=== PATIENT | male | born 1955 | race Caucasian/White ===

== ENCOUNTER 2021-05-10 14:47 | Outpatient (CLI) | payer MEDICARE, SELFPAY ==
--- NOTE | 2021-05-10 14:50 | XRR_ITS ---
PROCEDURE INFORMATION: Exam: XR Chest Exam date and time: 05/10/2021 2:50 PM Age: 66 years old Clinical indication: Shortness of breath; Prior surgery; Surgery type: Open heart; Additional info: Other chest pain/shortness of breath TECHNIQUE: Imaging protocol: XR of the chest. Views: 2 views. COMPARISON: CR Cervical Spine AP/Lat* [id number] 06/27/2017 12:31 PM FINDINGS: Lungs: Mildly hyperinflated lungs. No focal consolidation. Pleural spaces: Unremarkable. No pleural effusion. No pneumothorax. Heart/Mediastinum: Post CABG changes with sternotomy wires/plates and borderline cardiomegaly. Bones/joints: See Heart/Mediastinum finding. XR/XR chest 2V* [id number] IMPRESSION: No acute findings.
== END 2021-05-10 14:48 | disposition home or self-care (01) ==
LOC: RAD 14:48
PROVIDERS: PCP Family Medicine; Visit Provider Family Medicine
DX: R07.89 Other chest pain (principal); R06.02 Shortness of breath
CPT/HCPCS: 71046

== ENCOUNTER 2021-09-19 16:47 | Outpatient (CLI) | payer MEDICARE, SELFPAY ==
--- NOTE | 2021-09-19 | XR_ITS ---
WS: [id number] Bilateral hips, AP pelvis, 09/19/2021 Clinical Data: BILATERAL HIP PAIN. CHRONIC LOW BACK PAIN. Comparison: None. Findings: The AP pelvis shows that the SI joints and pubic symphysis are normal. There is a posterior fusion fr om L4 through S1 with bilateral pedicle screws and connecting rods. The right hip shows no fracture. There is a small acetabular lip. The right hip shows no erosion, scl erosis, narrowing or flattening. The left hip shows no fracture. There is a small acetabular lip. He the left hip shows no erosion, sc lerosis, narrowing or flattening. XR/XR hip BI m 5V wo/w pel* [id number] Impression: 1. Posterior fusion from L4 through S1. 2. Negative pelvis. 3. Minimal osteoarthritic lipping of both hips.
--- NOTE | 2021-09-19 | XR_ITS ---
WS: [id number] Lumbar spine, 3 views, 09/19/2021 Clinical Data: CHRONIC LOW BACK PAIN Comparison: Lumbar spine, 06/27/2017. Findings: There is a posterior fusion of L4-S1 with bilateral pedicle screws and connecting rods. Artificial di sc material is in L4-L5 and L5-S1. Laminectomies at L4 and L5 are seen. There is anterior osteoarthri tic spurring at L3-L4. No compression fractures or subluxation is seen. No disc space narrowing is seen. The transverse proc esses and SI joints are normal. XR/XR lumbar spine 2-3V* [id number] Impression: 1. Negative for lumbar spine fracture or subluxation. 2. Stable posterior fusion L4-S1.
== END 2021-09-19 16:48 | disposition home or self-care (01) ==
LOC: RAD 16:52
PROVIDERS: PCP Family Medicine; Visit Provider Family Medicine
DX: M54.41 Lumbago with sciatica, right side (principal); M54.42 Lumbago with sciatica, left side; G89.29 Other chronic pain; M43.27 Fusion of spine, lumbosacral region; M25.551 Pain in right hip; M25.552 Pain in left hip
CPT/HCPCS: 72100; 73502; 73523

== ENCOUNTER 2021-11-13 16:40 | Emergency (ER) | payer MEDICARE, SELFPAY ==
[2021-11-13 17:08] VITALS: BP 114/61; PULSE 72; RESP 16; O2SAT 95; BMI 30.5
--- NOTE | 2021-11-13 17:09 | W.ED.LOWEXIN ---
HPI - Extremity Injury (Lower) General: Chief Complaint: Chest Pain Stated Complaint: right hip pain Time Seen by Provider: 11/13/21 17:08 History of Present Illness: 66-year-old male patient comes in today with right hip pain. Patient reports that he has had pain on and off for the last 3 months. Patient is awaiting an MRI for further evaluation of the pain. Patient sees Dr. Ordonez. Patient came in today to see if there was anything that could be done to help with his pain and discomfort. Patient had to have a bypass and does have some discomfort to his chest wall from a fall about 3 weeks ago which she mentioned to nursing staff. Patient states that he is not really concerned about the chest wall pain as its been going on for 2 years after his CABG. It just seem to be aggravated since he fell. Pain is reproducible to the chest wall with palpation. Patient is able to stand and walk but reports increased pain to his right hip area with walking. Patient also reports increased falls due to his right hip. Review of Systems General: Reports: 10 or more systems reviewed and unremarkable except in HPI and below Musc: Reports: joint pain (Right hip) PFS ED PFSH: Social History (Updated 02/09/21 @ 16:02 by Joon Mcdonald LPN) Smoking and tobacco status: current every day smoker cigarettes Quit status (tobacco): considering quitting History of recent travel: No Physical Exam Const: COMMON NORMALS: alert Chest: CHEST: Yes tenderness rib and costochondral junction (left lower sternal area) Resp: COMMON NORMALS: normal respiratory effort and clear to auscultation bilaterally AUSCULTATION: clear to auscultation bilaterally Cardio: COMMON NORMALS: regular rate and regular rhythm RATE: regular rate RHYTHM: regular rhythm GI: COMMON NORMALS: Soft to palpation and non-tender PALPATION: Yes Soft to palpation Extremity: RIGHT LOWER EXTREMITY: Yes hip joint (No tenderness to palpation. Mild decrease in range of motion.) Right hip: Yes inspection, Yes palpation, Yes ROM and Yes neurovascular exam Neuro: SENSORIUM/ORIENTATION: Yes alert Psych: COMMON NORMALS: cooperative Skin: COMMON NORMALS: no rashes or lesions noted GENERAL SKIN EXAM: no rashes or lesions noted Course Vital Signs: Vital signs: Vital Signs Pulse Rate 72 11/13/21 17:08 Respiratory Rate 16 11/13/21 17:08 Blood Pressure 114/61 11/13/21 17:08 Pulse Oximetry 95 11/13/21 17:08 MDM - Extremity Injury (Lower) Medical Decision Making 66-year-old male patient comes in today for complaints of right hip pain. On exam patient has some reproducible chest wall pain on palpation to left lower sternal costal area. Lungs have good air movement throughout with some coarse sounds in the bases. Heart rates regular with normal tones. Abdomen soft nontender. Palpation of the lower lumbar elicits some discomfort. Paraspinous muscle palpation does not elicit pain. No pain is noted on palpation of the hip joint or inguinal area. Review of the record noted some x-rays done at the end of August that noted a intact fusion in the lower lumbar without any signs of fracture, or any hip fractures but some degenerative joint disease in the hips bilaterally. Differential diagnosis includes osteoarthritis of the hip, intervertebral disc disease, facet arthropathy, contusion. The patient's pain is probably secondary to osteoarthritis of the hip. I encourage patient to stay as mobile as he can. Patient was given 10 mg of dexamethasone to see if that would help with his pain and inflammation. Patient will continue with routine care. Case management was quested to put in referral to orthopedics for further evaluation and treatment. Patient reported understanding and agreed to plan. Discharge Plan Discharge Patient Disposition: Home Clinical Impression: Chronic right hip pain, Osteoarthritis, hip, bilateral Condition: Stable Prescriptions: No Action mirtazapine [Remeron] 30 mg tablet 30 mg PO DAILY 0RF hydrocodone-acetaminophen 7.5-325 mg tablet 1 tab PO Q6H PRN0RF tramadol 50 mg tablet 50 mg PO BID PRN0RF levothyroxine 50 mcg capsule 50 mcg PO DAILY 0RF apixaban 5 mg tablet 5 mg PO BID 0RF atorvastatin 20 mg tablet 20 mg PO DAILY 0RF diazepam [Valium] 10 mg tablet 10 mg PO TID PRN0RF clonazepam [Klonopin] 0.5 mg tablet 0.25 mg PO BID 0RF digoxin 250 mcg (0.25 mg) tablet 250 mcg PO DAILY 0RF aspirin 81 mg tablet,delayed release (DR/EC) 81 mg PO DAILY 0RF polyethylene glycol 3350 [Miralax] 17 gram/dose powder 17 g PO BID 0RF Discharge Orders: Discharge ED (Routine); Ordered 11/13/21 Ordered By: Harvey Perez Referrals: Chen Ordonez DO [Primary Care Provider] - Discharge Diet: Usual diet Discharge Activity: Increase activity as tolerated Patient Instructions: Musculoskeletal Pain (ED) Activity Restrictions/Additional Instructions: Home and rest. Activity as tolerated. Use a walker for ambulation. Follow-up with primary care. Case management will contact you with follow-up appointment for orthopedist. Return to the ER for new concerns. Coding Level of Care Code ED Warehouse Picker for Chg Fwd History Problem Focused Exam Problem Focused Medical Decision Making Low Complexity Time Spent (min) 20
[2021-11-13] MEDS: dexamethasone 10 mg/mL INJ IM (17:48)
[2021-11-13 18:07] VITALS: PULSE 74; RESP 16; O2SAT 95
--- NOTE | 2021-11-14 09:44 | DCPLANNER ---
Addendum entered by Carrol Chaudhari 12/30/21 08:14: patient had a follow up appointment scheduled for 11.23.[address] Carl at ortho - patient did attend appointment, Addendum entered by Carrol Chaudhari 11/15/21 07:16: Patient has a follow up appointment scheduled for Tuesday, November 23, 2021 at 1:[address] Lambert at ortho. Clinic will call patient with appointment information. Original Note: mine engineering manager had message to schedule a follow up appointment for patient with ortho. mine engineering manager called the ortho clinic, spoke with Caitie, gave clinic patients information. mine engineering manager was told that patients information will be printed and reviewed. Clinic will call patient with appointment information.
== END 2021-11-13 18:08 | disposition home or self-care (01) ==
PROVIDERS: Emergency Provider Nurse Practitioner Family; PCP Family Medicine
DX: G89.29 Other chronic pain (principal); M25.551 Pain in right hip; M16.0 Bilateral primary osteoarthritis of hip; Z79.82 Long term (current) use of aspirin; F17.210 Nicotine dependence, cigarettes, uncomplicated
CPT/HCPCS: 96372; 99283; J1100

== ENCOUNTER → 2021-11-23 13:31 | Outpatient (BNVA) | payer MEDICARE, SELFPAY | PROVIDERS: PCP Family Medicine; Referring Provider Nurse Practitioner Family; Visit Provider Orthopaedic Surgery | DX: M25.551 Pain in right hip (principal); G89.29 Other chronic pain; Z98.1 Arthrodesis status | CPT/HCPCS: 73502 ==

== ENCOUNTER → 2021-11-24 13:25 | Outpatient (BNVA) | payer MEDICARE, SELFPAY | PROVIDERS: PCP Family Medicine; Visit Provider Orthopaedic Surgery | DX: M54.50 Low back pain, unspecified (principal) | CPT/HCPCS: 72110 ==